=== PATIENT | male | born 1965 | race African-American/Black ===

== ENCOUNTER 2018-08-24 06:24 | Emergency (ER) | payer BC ==
[~2018-08-24] VITALS: Ht 177.8 cm; Wt 100.0 kg
[~2018-08-24 06:24] MED LIST: METFORMIN
[2018-08-24] MEDS ORDERED: FLUORESCEIN SODIUM 1MG/STRIP OP ONE (07:30)
[2018-08-24] MEDS ORDERED: METOCLOPRAMIDE HCL 10MG TABLET PO ONE (07:30)
[2018-08-24] MEDS ORDERED: IBUPROFEN 800MG TABLET PO ONE (07:30)
[2018-08-24] MEDS ORDERED: TETRACAINE 0.5% OPHTH DROPS 4ML OP ONE (07:30)
[2018-08-24 09:49] VITALS: BP 144/83
== END 2018-08-24 09:51 | disposition home or self-care (01) ==
LOC: ER 06:24
DX: S05.02XA Injury of conjunctiva and corneal abrasion without foreign body, left eye, initial encounter (principal); R51 Headache; E11.9 Type 2 diabetes mellitus without complications; E78.00 Pure hypercholesterolemia, unspecified; I10 Essential (primary) hypertension; Z79.84 Long term (current) use of oral hypoglycemic drugs; Z88.1 Allergy status to other antibiotic agents; X58.XXXA Exposure to other specified factors, initial encounter; Y93.89 Activity, other specified; Y92.018 Other place in single-family (private) house as the place of occurrence of the external cause
CPT/HCPCS: 99283; J8597

== ENCOUNTER 2022-11-17 16:58 | Emergency (ER) | payer BC ==
[~2022-11-17] VITALS: Ht 182.9 cm; Wt 99.0 kg
[2022-11-17 17:00] VITALS: TEMP 98.1; O2SAT 98
[2022-11-17] MEDS ORDERED: KETOROLAC 60MG/2ML VIAL IM ONE (17:15)
[2022-11-17 17:37] LABS: BASOPHILS % 0.4 % (0.0-2.0); EOSINOPHILS % 2.2 % (0.0-5.0); HEMATOCRIT. 40.9 % (42.0-52.0); HEMOGLOBIN. 13.6 g/dL (14.0-18.0); LYMPHOCYTES % 36.1 % (20.0-50.0); MEAN CORPUSCULAR HEMOGLOBIN 28.8 pg (28.0-32.0); MEAN CORPUSCULAR HGB CONC 33.2 g/dL (31.0-37.0); MEAN CORPUSCULAR VOLUME 86.9 fL (80.0-94.0); MEAN PLATELET VOLUME 7.5 fl (7.4-10.4); MONOCYTES % 6.8 % (2.0-8.0); NEUTROPHILS % 54.5 % (40.0-76.0); PLATELET 235 x1000/uL (130-400); RED BLOOD CELL COUNT 4.71 mill/uL (4.7-6.1); RED CELL DISTRIBUTION WIDTH 13.7 % (11.6-14.6); WHITE BLOOD COUNT 10.2 x1000/uL (4.5-11.0)
[2022-11-17 17:42] LABS: CHLORIDE 106 mEq/L (98-107); INDEX HEMOLYSI 1 (1-3); INDEX ICTERIC 1 (1-4); INDEX LIPEMIC 1 (1-3); POTASSIUM 4.1 mEq/L (3.5-5.1); SODIUM 137 mEq/L (136-145)
[2022-11-17 17:53] LABS: ALANINE AMINOTRANSFERASE 31 IU/L (13-61); ALBUMIN 3.8 g/dL (3.4-5.0); ASPARTATE AMINOTRANSFERASE 16 IU/L (15-37); BILIRUBIN TOTAL 0.7 mg/dL (0.1-1.0); CALCIUM 9.1 mg/dL (8.5-10.1); CARBON DIOXIDE 26 mEq/L (21-32); CREATININE 1.2 mg/dL (0.6-1.3); GLUCOSE 142 mg/dL (70-105); PROTEIN TOTAL 7.8 g/dL (6.0-8.3); TROPONIN I HIGH SENSITIVITY 4 ng/L (<78); UREA NITROGEN BLOOD 21 mg/dL (7-21)
[2022-11-17 18:09] VITALS: BP 170/92; PULSE 90; RESP 18
== END 2022-11-17 18:46 | disposition home or self-care (01) ==
LOC: ER 17:18
DX: S29.011A Strain of muscle and tendon of front wall of thorax, initial encounter (principal); I10 Essential (primary) hypertension; E78.00 Pure hypercholesterolemia, unspecified; E11.9 Type 2 diabetes mellitus without complications; Z88.1 Allergy status to other antibiotic agents; X58.XXXA Exposure to other specified factors, initial encounter; Y93.89 Activity, other specified; Y92.89 Other specified places as the place of occurrence of the external cause; Y99.8 Other external cause status
CPT/HCPCS: 99283; 80053; 85025; 84484; 36415; 96372; J1885